=== PATIENT | female | born 1990 | race Caucasian/White ===

== ENCOUNTER 2024-10-17 15:04 | Emergency (ER) | payer MEDICAID ==
[~2024-10-17] VITALS: Ht 154.9 cm; Wt 72.0 kg
[2024-10-17 15:08] VITALS: BP 112/69; PULSE 97; RESP 18; TEMP 98; O2SAT 100
[2024-10-17 15:50] LABS: CLARITY URINE CLEAR (CLEAR); COLOR URINE RED (YELLOW); GLUCOSE URINE NEGATIVE (NEGATIVE); KETONES URINE TRACE (NEGATIVE); LEUKOCYTE ESTERASE URINE 2+ (NEGATIVE); NITRITE URINE NEGATIVE (NEGATIVE); OCCULT BLOOD URINE 3+ (NEGATIVE); PROTEIN URINE 3+ (NEGATIVE); SPECIFIC GRAVITY URINE 1.034 (1.005-1.030); UROBILINOGEN URINE 0.2 E.U./dL (0.2-1.0)
[2024-10-17 15:55] LABS: BASOPHILS % 0.9 % (0.0-2.0); EOSINOPHILS % 0.1 % (0.0-5.0); HEMATOCRIT. 37.9 % (36.0-48.0); HEMOGLOBIN. 12.9 g/dL (12.0-16.0); LYMPHOCYTES % 13.7 % (20.0-50.0); MEAN CORPUSCULAR HEMOGLOBIN 31.3 pg (28.0-32.0); MEAN CORPUSCULAR VOLUME 92.1 fL (81.0-99.0); MEAN PLATELET VOLUME 7.7 fl (7.4-10.4); NEUTROPHILS % 81.3 % (40.0-76.0); PLATELET 344 x1000/uL (130-400); RED BLOOD CELL COUNT 4.11 mill/uL (4.2-5.4); RED CELL DISTRIBUTION WIDTH 13.8 % (11.6-14.6); WHITE BLOOD COUNT 10.1 x1000/uL (4.5-11.0)
[2024-10-17 15:59] LABS: CHLORIDE 106 mEq/L (98-107); POTASSIUM 3.9 mEq/L (3.5-5.1); SODIUM 139 mEq/L (136-145)
[2024-10-17 16:00] LABS: CARBON DIOXIDE 22 mEq/L (21-32)
[2024-10-17 16:01] LABS: CALCIUM 9.8 mg/dL (8.7-10.4)
[2024-10-17 16:05] LABS: CREATININE 0.8 mg/dL (0.6-1.0); GLUCOSE 101 mg/dL (70-105)
[2024-10-17 16:06] LABS: UREA NITROGEN BLOOD 15 mg/dL (9-23)
[2024-10-17 16:17] LABS: BACTERIA URINE 2+
[2024-10-17 16:18] LABS: RBC URINE TNTC /hpf (0-2); SQUAMOUS EPITHELIAL CELL URINE 1+ /lpf (RARE/1+)
[2024-10-17 17:32] LABS: HCG SCREEN POSITIVE
[2024-10-17] MEDS: ACETAMINOPHEN 325MG TABLET PO STA (18:43)
[2024-10-17] MEDS ORDERED: ACET-2708 PO (21:05)
== END 2024-10-17 21:33 | disposition home or self-care (01) ==
LOC: ER 15:04
DX: O26.899 Other specified pregnancy related conditions, unspecified trimester (principal); O46.90 Antepartum hemorrhage, unspecified, unspecified trimester; Z3A.00 Weeks of gestation of pregnancy not specified
CPT/HCPCS: 36415; 76801; 80048; 81003; 81025; 84702; 84703; 85025; 99284

== ENCOUNTER 2024-11-02 16:49 | Emergency (ER) | payer MEDICAID ==
[~2024-11-02] VITALS: Ht 157.5 cm; Wt 71.0 kg
[~2024-11-02 16:49] MED LIST: ACET-2708 PO
[2024-11-02 16:51] VITALS: O2SAT 99
[2024-11-02 17:10] VITALS: TEMP 98.3; O2SAT 100
[2024-11-02 20:28] LABS: CLARITY URINE CLEAR (CLEAR); COLOR URINE YELLOW (YELLOW); GLUCOSE URINE NEGATIVE (NEGATIVE); KETONES URINE NEGATIVE (NEGATIVE); LEUKOCYTE ESTERASE URINE NEGATIVE (NEGATIVE); NITRITE URINE NEGATIVE (NEGATIVE); OCCULT BLOOD URINE NEGATIVE (NEGATIVE); PH URINE 5.5 (4.5-8.0); PROTEIN URINE NEGATIVE (NEGATIVE); SPECIFIC GRAVITY URINE 1.013 (1.005-1.030); UROBILINOGEN URINE 0.2 E.U./dL (0.2-1.0)
[2024-11-02 21:21] VITALS: BP 136/97; PULSE 75; RESP 15
[2024-11-02] MEDS: HYDROCODONE/ACETAMINOPHEN 5/325MG TABLET PO ONE (21:21)
[2024-11-02 21:29] LABS: CHLORIDE 104 mEq/L (98-107); POTASSIUM 3.7 mEq/L (3.5-5.1); SODIUM 139 mEq/L (136-145)
[2024-11-02 21:30] LABS: CARBON DIOXIDE 19 mEq/L (21-32)
[2024-11-02 21:31] LABS: CALCIUM 10.4 mg/dL (8.7-10.4)
[2024-11-02 21:35] LABS: CREATININE 0.9 mg/dL (0.6-1.0); GLUCOSE 93 mg/dL (70-105)
[2024-11-02 21:36] LABS: UREA NITROGEN BLOOD 17 mg/dL (9-23)
[2024-11-02 21:37] LABS: ALANINE AMINOTRANSFERASE 19 IU/L (10-49); ALBUMIN 5.4 g/dL (3.2-4.8); ASPARTATE AMINOTRANSFERASE 16 IU/L (<34)
[2024-11-02 21:38] LABS: BILIRUBIN TOTAL 0.2 mg/dL (0.1-1.0); PROTEIN TOTAL 8.7 g/dL (6.0-8.3)
[2024-11-02 21:39] LABS: BILIRUBIN DIRECT < 0.1 mg/dL (<=3.0)
[2024-11-02 21:46] LABS: HCG SCREEN NEGATIVE
[2024-11-02 21:55] LABS: BASOPHILS % 0.9 % (0.0-2.0); EOSINOPHILS % 0.6 % (0.0-5.0); HEMATOCRIT. 40.3 % (36.0-48.0); HEMOGLOBIN. 13.8 g/dL (12.0-16.0); LYMPHOCYTES % 28.9 % (20.0-50.0); MEAN CORPUSCULAR HEMOGLOBIN 31.4 pg (28.0-32.0); MEAN CORPUSCULAR HGB CONC 34.1 g/dL (31.0-37.0); MEAN CORPUSCULAR VOLUME 92.1 fL (81.0-99.0); MEAN PLATELET VOLUME 8.5 fl (7.4-10.4); MONOCYTES % 4.2 % (2.0-8.0); NEUTROPHILS % 65.4 % (40.0-76.0); PLATELET 340 x1000/uL (130-400); RED BLOOD CELL COUNT 4.38 mill/uL (4.2-5.4); RED CELL DISTRIBUTION WIDTH 13.4 % (11.6-14.6); WHITE BLOOD COUNT 10.7 x1000/uL (4.5-11.0)
[2024-11-02] MEDS ORDERED: CEFTRIAXONE SODIUM 1G VIAL IM ONE (23:30)
[2024-11-03] MEDS ORDERED: IBUP-2029 MT (02:13)
[2024-11-03] MEDS ORDERED: DICY20TA2 MT (02:13)
[2024-11-03] MEDS: MORPHINE SULFATE 4 MG/ML INJ (FOR IV/IM USE) IV STA (02:26)
[2024-11-03] MEDS: KETOROLAC 30MG/ML VIAL IM ONE (02:26)
[2024-11-03] MEDS: ONDANSETRON HCL 4MG/2ML INJ IV STA (02:27)
== END 2024-11-03 02:30 | disposition home or self-care (01) ==
LOC: ER 16:49
DX: R10.11 Right upper quadrant pain (principal); Z98.890 Other specified postprocedural states
CPT/HCPCS: 99285; 76705; 74176; 76830; 80076; 80048; 81003; 81025; 84703; 83690; 85025; 36415; 76856; 96372 ×2; J1885